=== PATIENT | male | born 1990 | race American Indian/Alaskan Native ===

== ENCOUNTER 2017-12-03 10:45 | Emergency (ER) | payer SELFPAY ==
[2017-12-03 11:17] VITALS: BP 121/64
--- NOTE | 2017-12-03 12:38 | Emergency Department Report ---
ED Laceration HPI - HPI Chief Complaint: Wound/Laceration Stated Complaint: CHIN LACERATION Time Seen by Provider: 12/03/17 12:09 Occurred When: Yesterday Location: Head (chin) Severity: moderate Tetanus Status: Not up to Date Laceration Symptoms: Yes Pain, No Foreign Body Sensation, No Numbness, No Weakness Other History: This is a 27 y.o. male that presents with laceration to chin from falling yesterday. Reports going to a bar last night, had 1 drink. He took his sleeping pill so he could walk across the street to hotel and sleep. He stood up and fell, hitting head on the floor. Not sure how long he was down. He admits to pain and states reports teeth feel loose. There is some bloody discharge. Denies numbness/tingling, SOB, chest pain, and swelling. ED Review of Systems ROS: Stated complaint: CHIN LACERATION Other details as noted in HPI Constitutional: denies: chills, fever ENT: denies: ear pain, throat pain Respiratory: denies: cough, shortness of breath, wheezing Cardiovascular: denies: chest pain, palpitations Gastrointestinal: denies: abdominal pain, nausea, diarrhea Musculoskeletal: denies: back pain, joint swelling, arthralgia Skin: other (laceration to chin). denies: rash, lesions Neurological: denies: headache, weakness, paresthesias ED Past Medical Hx - Past Medical History Previous Medical History?: No - Surgical History Past Surgical History?: No - Social History Smoking Status: Current Every Day Smoker Substance Use Type: Alcohol Laceration Physical Exam - Exam General: Vital signs noted. No distress. Alert and acting appropriately. Wound Length (cm): 2 Laceration Location: Head (2 cm linear laceration, mandible, into muscle, serous discharge,) Laceration Exam: Yes Normal Distal CMS, No Foreign Body, No Exposed Tendon, Vessel, or Nerve, No Tendon Injury ED Course Vital Signs 12/03/17 11:13 Temperature 99.5 F Pulse Rate 78 Respiratory 16 Rate Blood Pressure 121/64 O2 Sat by Pulse 99 Oximetry - Laceration /Wound Repair Distal Face Wound Location: face (chin) Wound Length (cm): 2 Wound's Depth, Shape: into muscle, linear Wound Explored: clean Irrigated w/ Saline (ccs): 20 Betadine Prep?: Yes Anesthesia: 1% Lidocaine Volume Anesthetic (ccs): 1 Wound Repaired With: sutures Suture Size/Type: 5:0, proline Number of Sutures: 3 ED Medical Decision Making - Radiology Data Radiology results: report reviewed XR Mandible CONCLUSION: No definite acute mandibular radiographic abnormality, as described. Please correlate. - Medical Decision Making This is a 27 y.o. male presents with 2 cm laceration to mandible from fall last night. Patient examined by me. X-ray of mandible obtained and normal. Patient is non-toxic appearing and stable. 3 sutures applied, given tetanus immunization in ER. Discharged home and instructed to have sutures removed in 7 days. Discussed ER care plan with patient. Patient agreed with plan. F/U with PCP. Critical care attestation.: If time is entered above; I have spent that time in minutes in the direct care of this critically ill patient, excluding procedure time. ED Disposition Clinical Impression: Laceration Disposition: DC-01 TO HOME OR SELFCARE Is pt being admited?: No Does the pt Need Aspirin: No Condition: Stable Instructions: Suture Care (ED), Laceration (ED) Additional Instructions: Have sutures removed in 5-7 days. Follow up with Primary Care Provider in 24-72 hours. Return to ER if red, swollen, foul discharge, or fever. Referrals: [facility] [Outside] - 3-5 Days [facility] [Outside] - 3-[address] [facility] [Outside] - 3-5 Days Forms: Work/School Release Form(ED) Time of Disposition: 15:28 Print Language: UPPER SORBIAN
--- NOTE | 2017-12-03 14:38 | XRay Report ---
MANDIBLE RADIOGRAPHS INDICATION: Laceration to chin and loose teeth. COMPARISON: None similar at this institution. FINDINGS: AP and oblique views demonstrate grossly intact mandible. Few radiopaque dental material. Bilateral earrings incidentally seen. Frontal sinuses may be non-pneumatized. CONCLUSION: No definite acute mandibular radiographic abnormality, as described. Please correlate. Thank you for the opportunity to participate in this patient's care.
[2017-12-03] MEDS ORDERED: BOOSTRIX IM ONE (14:45)
[2017-12-03] MEDS ORDERED: XYLOCAINE 1% MPF 5 mL ONE (14:45)
[2017-12-03] MEDS ORDERED: XYLOCAINE 1% 20 mL INFILTRATI ONE (14:47)
== END 2017-12-03 16:08 | disposition home or self-care (01) ==
LOC: ED 10:45
DX: S01.81XA Laceration without foreign body of other part of head, initial encounter (principal); F17.200 Nicotine dependence, unspecified, uncomplicated; W01.0XXA Fall on same level from slipping, tripping and stumbling without subsequent striking against object, initial encounter; Y93.89 Activity, other specified; Y92.89 Other specified places as the place of occurrence of the external cause; Y99.8 Other external cause status
CPT/HCPCS: 70110; 90471; 90715; 99283

== ENCOUNTER 2017-12-21 11:45 | Emergency (ER) | payer OTHER ==
--- NOTE | 2017-12-21 15:29 | Emergency Department Report ---
ED Fall HPI - General Chief Complaint: Head Injury Stated Complaint: HEADACHE, BLURRED VISION Time Seen by Provider: 12/21/17 14:22 Source: patient Mode of arrival: Ambulatory - History of Present Illness Initial Comments: This is a 27-year-old male nontoxic, well nourished in appearance, no acute signs of distress presents to the ED with c/o of right sided jaw pain and chin pain x2 week. Patient stated she was seen in the ED on 12/03/2017 and had normal xray done. Patient stated he had a fall on 12/03/2017 and hit the middle of the chin. Patient denies any loss of consciousness. Patient now states has headache radiates from right jaw to the right occipital lobe region. Patient denies any blurry vision, visual changes, fever, chills, nausea, vomiting, numbness or tingling. Patient denies any allergies or significant past history. MD Complaint: fall -: week(s) (2) Fall From: chair When Fall Occurred: # days [employer] BEVER[employer] (2 weeks) Fall Witnessed: yes, by bystander Place Fall Occurred: street Loss of Consciousness: none Prolonged Down Time?: no Symptoms Prior to Fall: none Location: face Severity: mild Severity scale (0 -10): 8 Quality: aching Context: tripped/slipped Associated Symptoms: denies, headache. denies: neck pain, numbness, weakness, chest paint, shortness of breath, abdominal pain, hematuria, unable to walk, lightheaded, vertigo, confusion - Related Data Previous Rx's Medication Instructions Recorded Last Taken Type Ibuprofen [Motrin] 600 mg PO Q8H PRN #30 tablet 12/21/17 Unknown Rx traMADol [Ultram] 50 mg PO Q6HR PRN #12 tablet 12/21/17 Unknown Rx Allergies Allergy/AdvReac Type Severity Reaction Status Date / Time No Known Allergies Allergy Unverified 12/03/17 14:40 ED Review of Systems ROS: Stated complaint: HEADACHE, BLURRED VISION Other details as noted in HPI Constitutional: denies: chills, fever Eyes: denies: eye pain, eye discharge, vision change ENT: denies: ear pain, throat pain Respiratory: denies: cough, shortness of breath, wheezing Cardiovascular: denies: chest pain, palpitations Endocrine: no symptoms reported Gastrointestinal: denies: abdominal pain, nausea, diarrhea Genitourinary: denies: urgency, dysuria Musculoskeletal: denies: back pain, joint swelling, arthralgia Skin: denies: rash, lesions Neurological: denies: headache, weakness, paresthesias Psychiatric: denies: anxiety, depression Hematological/Lymphatic: denies: easy bleeding, easy bruising ED Past Medical Hx - Past Medical History Previous Medical History?: No - Surgical History Past Surgical History?: No - Social History Smoking Status: Never Smoker - Medications Home Medications: Home Medications Medication Instructions Recorded Confirmed Last Taken Type Ibuprofen [Motrin] 600 mg PO Q8H PRN #30 tablet 12/21/17 Unknown Rx traMADol [Ultram] 50 mg PO Q6HR PRN #12 tablet 12/21/17 Unknown Rx ED Physical Exam - General Limitations: No Limitations General appearance: alert, in no apparent distress - Head Head exam: Present: atraumatic, normocephalic - Eye Eye exam: Present: normal appearance, PERRL, EOMI Pupils: Present: normal accommodation - ENT ENT exam: Present: normal exam, mucous membranes moist - Neck Neck exam: Present: normal inspection, full ROM. Absent: tenderness, meningismus, lymphadenopathy, thyromegaly - Respiratory Respiratory exam: Present: normal lung sounds bilaterally. Absent: respiratory distress, wheezes, rales, rhonchi, stridor, chest wall tenderness, accessory muscle use, decreased breath sounds, prolonged expiratory - Cardiovascular Cardiovascular Exam: Present: regular rate, normal rhythm, normal heart sounds. Absent: bradycardia, tachycardia, irregular rhythm, systolic murmur, diastolic murmur, rubs, gallop - GI/Abdominal GI/Abdominal exam: Present: soft, normal bowel sounds. Absent: distended, tenderness, guarding, rebound, rigid, diminished bowel sounds - Rectal Rectal exam: Present: deferred - Extremities Exam Extremities exam: Present: normal inspection, full ROM, normal capillary refill - Back Exam Back exam: Present: normal inspection, full ROM. Absent: tenderness, paraspinal tenderness, vertebral tenderness, rash noted - Neurological Exam Neurological exam: Present: alert, oriented X3, CN II-XII intact, normal gait, reflexes normal - Expanded Neurological Exam Expanded Patient oriented to: Present: person, place, time Cranial nerves: Tongue Deviation: Normal, Facial Sensation: Normal, Facial Palsy with Forehead Movement: Normal, Facial Palsy without Forehead Movement: Normal Sensory exam: Upper Extremity Light Touch: Normal, Upper Extremity Pin Prick: Normal, Upper Extremity Temperature: Normal, UE 2 Point Discrimination: Normal, Lower Extremity Light Touch: Normal, Lower Extremity Pin Prick: Normal, Lower Extremity Temperature: Normal, LE 2 Point Discrimination: Normal Motor strength exam: RUE: 5, LUE: 5, RLE: 5, LLE: 5 DTR: bicep (R): 2+, bicep (L): 2+, tricep (R): 2+, tricep (L): 2+, knee (R): 2+ , knee (L): 2+, ankle (R): 2+, ankle (L): 2+ Best Eye Response (Luh): (4) open spontaneously Best Motor Response ([place]): (6) obeys commands Best Verbal Response (Luh): (5) oriented [place] Total: 15 - Psychiatric Psychiatric exam: Present: normal affect, normal mood - Skin Skin exam: Present: warm, dry, intact, normal color. Absent: rash ED Course Vital Signs 12/21/17 12/21/17 12:50 16:33 Temperature 98.9 F Pulse Rate 65 Respiratory 18 18 Rate Blood Pressure 112/77 O2 Sat by Pulse 100 Oximetry - Reevaluation(s) Reevaluation #1: 12/21/17 16:58 Patient is speaking in full sentences with no signs of distress noted. - Consultations Consultation #1: 12/21/17 16:58 Patient has been consulted with Dr. Cline about patient history, physical exam, and labs and and imaging results and agrees for consolation with oral maxillary surgeon at [facility]. Consultation #2: 12/21/17 17:21 Dr. Huitron from [place] oral maxillary surgeon was consulted and stated for follow- up on Thursday during clinic hours. ED Medical Decision Making - Medical Decision Making This is a 27-year-old male that presents with bilateral mandible fractures. Patient stable was examined by me. CT scan of head/brain within normal limits CT scan of facial bones indicates factors to the right and left mandibular condyles. Patient is notified of the CT results with no questions noted. Patient does have mild trismus. Patient received Toradol in the ED. Dr. Cline was consulted and agrees to the ED plan of care. Dr. Huitron was consulted about patient history, physical exam, and CT results and stated to follow-up with Dr. Huitron on Thursday. Patient stated has normal PO intake of fluids and stated it is difficult to eat hard foods. Patient was given all information on Dr. Huitron with number. At time of discharge, the patient does not seem toxic or ill in appearance. No acute signs of distress noted. Patient agrees to discharge treatment plan of care. No further questions noted by the patient. Critical care attestation.: If time is entered above; I have spent that time in minutes in the direct care of this critically ill patient, excluding procedure time. ED Disposition Clinical Impression: Bilateral mandibular fracture Qualifiers: Encounter type: initial encounter Fracture type: closed Qualified Code(s): S02.609A - Fracture of mandible, unspecified, initial encounter for closed fracture Disposition: TO HOME OR SELFCARE Is pt being admited?: No Does the pt Need Aspirin: No Condition: Stable Instructions: Ibuprofen (By mouth), Tramadol (By mouth), Jaw Fracture in Adults (ED) Additional Instructions: Follow-up with a oral maxillary surgeon on Thursday or if symptoms worsen and continue return to emergency room as soon as possible. Do not operate any machinery while taking Ultram due to drowsiness [facility] Oral Maxillary Surgeon 3rd floor (3C) Dr. Huitron [phone] [place] [address] Prescriptions: Ibuprofen [Motrin] 600 mg PO Q8H PRN #30 tablet PRN Reason: Pain traMADol [Ultram] 50 mg PO Q6HR PRN #12 tablet PRN Reason: Pain Referrals: [facility] [Outside] - 3-5 Days [facility] [Outside] - 3-5 Days PRIMARY MD MALDONADO [Primary Care Provider] - 3-5 Days RIAN VELAZQUEZ MD [Staff Physician] - 3-5 Days Forms: Work/School Release Form(ED)
[2017-12-21] MEDS ORDERED: TORADOL IM ONE (16:24)
--- NOTE | 2017-12-21 16:27 | Cat Scan Report ---
FINAL REPORT PROCEDURE: CT FACIAL BONES WO CON TECHNIQUE: Computerized tomography of the facial bones and soft tissues with axial and coronal sections performed from the cranial aspect of the frontal sinuses to the caudal portion of the mandible without contrast material. HISTORY: headache COMPARISON: No prior studies are available for comparison. FINDINGS: There is an oblique fracture through the base of the neck of the left mandibular condyle with moderate displacement of the condyle and neck anteriorly. There is also a comminuted fracture of the neck of the right mandibular condyle extending to and including a portion of the articular surface seen best on coronal image 57 series 200. No dislocation of the mandibular condyles visualized. There is also a minimally displaced fracture through anterior aspect of the mandible seen on axial image 26 series 3. No other facial fractures are identified. The nasal bone, the orbits zygomas and zygomatic arches as well as the jurado of the paranasal sinuses appear intact. There some mucosal thickening or mucous posteriorly in the right maxillary sinus and 1 of the posterior ethmoid air cells on the left.. The paranasal sinuses otherwise appear clear. IMPRESSION: Fractures right and left mandibular condyles present as described with intra-articular extension noted on the right. There is also a fracture through the anterior aspect of the mandible with minimal displacement. Minimal paranasal sinus disease as described. No other facial fractures are identified
--- NOTE | 2017-12-21 16:39 | Cat Scan Report ---
FINAL REPORT PROCEDURE: CT HEAD/BRAIN WO CON TECHNIQUE: Computerized tomography of the head was performed without contrast material. HISTORY: headache COMPARISON: No prior studies are available for comparison. FINDINGS: Brain: Brain density appears normal. No evidence of intracranial hemorrhage. No parenchymal hemorrhage, mass lesions or mass effect are seen. No abnormal extraxial fluid collects or masses are seen. Ventricles: Ventricles are normal size and are midline. Bone Windows: No evidence of skull fracture. Acute fracture of the right and left mandibular condyles are present as described in more detail under CT scan of the facial bones dictated earlier today. Paranasal sinuses: There is small amount of mucus or mucosal thickening in the right maxillary sinus also in 1 of the posterior ethmoid air cells on the left. Mastoid air cells: Clear IMPRESSION: Negative unenhanced CT of the brain. Acute fractures right and left mandibular condyles. Please see above comments and prior CT scan of the facial bones already reviewed and dictated today.. Minimal paranasal sinus disease as described.
[2017-12-21 17:56] VITALS: BP 118/72
== END 2017-12-21 17:55 | disposition home or self-care (01) ==
LOC: ED 11:45
DX: S02.612A Fracture of condylar process of left mandible, initial encounter for closed fracture (principal); S02.611A Fracture of condylar process of right mandible, initial encounter for closed fracture; W01.0XXA Fall on same level from slipping, tripping and stumbling without subsequent striking against object, initial encounter; Y93.89 Activity, other specified; Y99.8 Other external cause status; Y92.410 Unspecified street and highway as the place of occurrence of the external cause
CPT/HCPCS: 70450; 70486; 96372; 99283; J1885